=== PATIENT | female | born 2005 | race Caucasian/White ===

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

== ENCOUNTER 2023-04-10 14:30 | Emergency (ER) | payer SELFPAY | END 2023-04-10 16:48 | disposition home or self-care (01) | LOC: CSHERS 14:30 | DX: J01.90 Acute sinusitis, unspecified (principal) | CPT/HCPCS: 71045; 93005 ==

== ENCOUNTER 2023-05-06 09:15 | Emergency (ER) | payer SELFPAY ==
[2023-05-06 10:43] LABS: Bilirubin Neg (Negative); Blood, Urine 150 (Negative); Clarity Slightly Cloudy (Clear); Glucose, Urine (Dipstick) Normal (Negative); Ketone, Urine Negative (Negative); Leukocyte Negative (Negative); Nitrite Negative (Negative); Protein, Urine (Dipstick) Negative (Neg-Trace); Specific Gravity, Urine 1.005 (1.005-1.030); Urobilinogen Normal mg/dL (Less than 2)
[2023-05-06 10:51] LABS: Bacteria/HPF Rare-Few HPF (None Seen); CAUTI Indications for Culture Pregnancy; RBC/HPF 0-3 HPF (0-3); WBC/HPF 0-3 HPF (0-3)
[2023-05-06 10:52] LABS: Urine Culture Reflex Yes Yes
[2023-05-06 20:33] LABS: Chlamydia by PCR, Vaginal Swab Not Detected (NotDetected); GC by PCR, Vaginal Swab Not Detected (NotDetected)
== END 2023-05-06 12:55 | disposition home or self-care (01) ==
LOC: CSHERS 09:15
DX: O20.0 Threatened abortion (principal); Z3A.01 Less than 8 weeks gestation of pregnancy
CPT/HCPCS: 36415; 76856; 81001; 84702; 87077; 87086; 87186; 87480; 87491; 87510; 87591; 87660

== ENCOUNTER 2023-09-04 18:23 | Day surgery (SDC) | payer BC, MEDICAID ==
[2023-09-04 18:59] VITALS: BMI 29.2
== END 2023-09-04 21:05 | disposition home or self-care (01) ==
LOC: CSHLD/OP 18:23
PROVIDERS: ATTEND Family Medicine
DX: O99.891 Other specified diseases and conditions complicating pregnancy (principal); R10.9 Unspecified abdominal pain; Z79.899 Other long term (current) drug therapy; Z3A.28 28 weeks gestation of pregnancy

== ENCOUNTER 2023-10-06 15:38 | Outpatient (CLI) | payer OTHER | END 2023-10-06 15:39 | disposition home or self-care (01) | LOC: CSHULT 15:38 | PROVIDERS: ATTEND Family Medicine | DX: Z34.03 Encounter for supervision of normal first pregnancy, third trimester (principal); Z3A.30 30 weeks gestation of pregnancy | CPT/HCPCS: 76805 ==

== ENCOUNTER 2023-11-30 01:44 | Emergency (ER) | payer BC, MEDICAID, OTHER ==
[2023-11-30 02:41] LABS: #Eosinphils 0.1 10x3/uL (0.0-0.5); #Monocytes 0.5 10x3/uL (0.0-1.1); #Neutrophils 4.3 10x3/uL (1.5-8.4); %Basophils 0.5 % (0.0-2.0); %Eosinophils 1.5 % (0.0-6.0); %Lymphocytes 25.1 % (18.0-47.0); %Monocytes 7.8 % (0.0-10.0); %Neutrophils 64.5 % (40.0-75.0); Hematocrit 34.9 % (34.9-44.5); Hemoglobin 12.1 g/dL (12.0-15.5); Mean Corpuscular HGB CONC 34.7 g/dL (32.0-36.0); Mean Corpuscular Hemoglobin 29.3 pg (27.0-33.0); Mean Corpuscular Volume 84.5 fl (81.6-98.3); Mean Platelet Volume 10.3 fl (7.4-10.4); Platelet Count 215 10x3/uL (150-450); RBC Distribution Width 13.3 % (11.5-14.5); Red Blood Cell (RBC) Count 4.13 10x6/uL (3.90-5.03); White Blood Cell (WBC) Count 6.7 10x3/uL (3.5-10.5)
[2023-11-30 02:46] LABS: Albumin 3.2 g/dL (3.5-5.0); Alkaline Phosphatase 283 U/L (40-100); Anion Gap 14 mmol/L (10-20); BUN (Urea Nitrogen) 5 mg/dL (7.0-18.7); Bilirubin, Total 0.6 mg/dL (0.2-1.2); Calc. Creatinine Clearance 0 mL/min (70-130); Calcium 9.2 mg/dL (7.8-10.44); Carbon Dioxide 21 mmol/L (22-29); Chloride 107 mmol/L (98-107); Estimated GFR 132; Globulin 3.5 g/dL (2.4-3.5); Glucose 97 mg/dL (70-105); Potassium 3.6 mmol/L (3.5-5.1); Protein, Total 6.7 g/dL (6.0-8.3); Sodium 138 mmol/L (136-145)
[2023-11-30 02:47] LABS: ALT (SGPT) 122 U/L (8-55); AST (SGOT) 107 U/L (5-34)
== END 2023-11-30 03:05 | disposition home or self-care (01) ==
LOC: CSHERS 01:44
DX: O26.86 Pruritic urticarial papules and plaques of pregnancy (PUPPP) (principal); O26.613 Liver and biliary tract disorders in pregnancy, third trimester; Z3A.36 36 weeks gestation of pregnancy
CPT/HCPCS: 80053; 82239; 85025

== ENCOUNTER 2023-11-30 03:03 | Day surgery (SDC) | payer BC, MEDICAID ==
[2023-11-30] MEDS ORDERED: hydrALAZINE 20 MG/ML VIAL SLOW IVP PRN (03:32)
[2023-11-30 03:43] VITALS: BMI 34.3
[2023-11-30 03:55] LABS: Creatinine, Urine 47.06 mg/dL (47-110)
== END 2023-11-30 09:35 | disposition home or self-care (01) ==
LOC: CSHLD/OP 03:03
PROVIDERS: ATTEND Family Medicine
DX: O36.8130 Decreased fetal movements, third trimester, not applicable or unspecified (principal); O47.03 False labor before 37 completed weeks of gestation, third trimester; O26.643 Intrahepatic cholestasis of pregnancy, third trimester; K83.1 Obstruction of bile duct; Z79.899 Other long term (current) drug therapy; Z3A.36 36 weeks gestation of pregnancy
CPT/HCPCS: 76819; 80053; 82239; 82570; 84156; 85025; 99282; 99284

== ENCOUNTER 2023-12-06 18:00 | Inpatient (IN) | payer OTHER ==
[~2023-12-06 18:00] MED LIST: Bupivacaine 0.25% HCL 30 ML VIAL ONE; Bupivacaine PF 0.5% 30 ML VIAL ONE
[2023-12-06 20:46] VITALS: BMI 34.1
[2023-12-06] MEDS ORDERED: fentaNYL 50 mcg/mL 1 mL Vial SLOW IVP PRN (20:46)
[2023-12-06] MEDS ORDERED: Promethazine HCl 25 MG/ML VIAL IM PRN (20:46)
[2023-12-06] MEDS ORDERED: Lidocaine 1% (PF) 30 ML VIAL SC PRN (20:46)
[2023-12-06] MEDS ORDERED: Methylergonovine 0.2 MG/ML VIAL IM PRN (20:46)
[2023-12-06] MEDS ORDERED: Carboprost 250 MCG/ML AMP IM PRN (20:46)
[2023-12-06] MEDS ORDERED: Oxytocin 30 units/NS 500 ML 500 ML IV SCH ×2 (20:46)
[2023-12-06] MEDS ORDERED: Ondansetron PF 4 MG/2 ML Vial IVP PRN (20:46)
[2023-12-06] MEDS ORDERED: hydrALAZINE 20 MG/ML VIAL SLOW IVP PRN (20:46)
[2023-12-06] MEDS ORDERED: Diphenoxylate HCl/Atropine Tablet PO PRN (20:46)
[2023-12-06] MEDS ORDERED: HYDROcodone/Acetaminophen 5/325 mg Tablet PO PRN (20:46)
[2023-12-06] MEDS ORDERED: Misoprostol 200 MCG TAB PR PRN (20:46)
[2023-12-06] MEDS ORDERED: Ibuprofen 800 MG TAB PO PRN (20:46)
[2023-12-06] MEDS ORDERED: Tranexamic Acid 1,000 MG/10 ML VIAL IVP PRN (20:46)
[2023-12-06] MEDS: Misoprostol 100 MCG TAB PO SCH (21:32)
[2023-12-06 22:18] LABS: Hematocrit 36.3 % (34.9-44.5); Hemoglobin 12.6 g/dL (12.0-15.5); Mean Corpuscular HGB CONC 34.7 g/dL (32.0-36.0); Mean Corpuscular Hemoglobin 29.5 pg (27.0-33.0); Platelet Count 221 10x3/uL (150-450); RBC Distribution Width 13.6 % (11.5-14.5); Red Blood Cell (RBC) Count 4.27 10x6/uL (3.90-5.03); White Blood Cell (WBC) Count 8.4 10x3/uL (3.5-10.5)
[2023-12-06 22:50] LABS: HBSAg Index 0.21 S/CO (0-0.99); Hep B Surf Ag - L&D Non-Reactive S/CO (NonReactive)
[2023-12-06 22:51] LABS: Syphilis Antibody Nonreactive (Nonreactive); Syphilis Antibody Index 0.05 S/CO (<1.00 Non-Reactive)
[2023-12-07] MEDS ORDERED: Acetaminophen 325 MG TAB PO PRN (10:30)
[2023-12-07] MEDS ORDERED: Moisturizing Cream (Eucerin) 113 GM JAR TOP PRN (10:30)
[2023-12-07] MEDS ORDERED: ePHEDrine Sulfate 50 MG/10 ML VIAL SLOW IVP PRN (10:30)
[2023-12-07] MEDS ORDERED: Communication Order-Pharmacy FS SCH (10:30)
[2023-12-07] MEDS ORDERED: diphenhydrAMINE 50 MG/ML VIAL IVP PRN (10:30)
[2023-12-07] MEDS ORDERED: Promethazine HCl 25 MG/ML VIAL IM PRN (10:30)
[2023-12-07] MEDS ORDERED: Ondansetron PF 4 MG/2 ML Vial IVP PRN (10:30)
[2023-12-07] MEDS ORDERED: Lactated Ringer's 500 ML IV PRN (10:30)
[2023-12-07] MEDS ORDERED: Naloxone HCl 0.4 mg/ml Vial IVP PRN ×2 (10:30)
[2023-12-07] MEDS: fentaNYL/Ropivacaine Epidural 100 ML ONE (10:36)
[2023-12-07] MEDS: Oxytocin 30 units/NS 500 ML 500 ML IV SCH (11:43)
[2023-12-07] MEDS: fentaNYL 2 mcg/Ropivacaine 0.2% Epidural 100 ML CADD EPIDURAL SCH (20:42)
[2023-12-07] MEDS: Lactated Ringer's 1,000 ML IV SCH (20:43)
[2023-12-07] MEDS: Acetaminophen 500 MG TAB PO PRN (23:59)
[2023-12-07] MEDS: Ampicillin 2 GM in Sodium Chloride 0.9% 100 ML IVPB SCH (23:59)
[2023-12-08] MEDS: Lidocaine 1% (PF) 30 ML VIAL ONE (01:46)
[2023-12-08] MEDS ORDERED: Milk Of Magnesia 30 ML UDCUP PO PRN (04:25)
[2023-12-08] MEDS ORDERED: Boostrix 0.5 ML (Tdap) VIAL (>/=7 yrs of age) IM ONE (04:25)
[2023-12-08] MEDS ORDERED: Bisacodyl 10 MG SUPP PR PRN (04:25)
[2023-12-08] MEDS ORDERED: Promethazine HCl 25 MG/ML VIAL IM PRN (04:25)
[2023-12-08] MEDS ORDERED: diphenhydrAMINE 25 MG CAP PO PRN (04:25)
[2023-12-08] MEDS ORDERED: Lanolin Ointment 7 GM TUBE TOP PRN (04:25)
[2023-12-08] MEDS ORDERED: HYDROcodone/Acetaminophen 5/325 mg Tablet PO PRN (04:25)
[2023-12-08] MEDS ORDERED: Ondansetron PF 4 MG/2 ML Vial IVP PRN (04:25)
[2023-12-08] MEDS ORDERED: hydrALAZINE 20 MG/ML VIAL SLOW IVP PRN (04:25)
[2023-12-08] MEDS: Ibuprofen 800 MG TAB PO SCH (06:14)
[2023-12-08] MEDS: Ferrous Sulfate 325 MG TAB PO SCH (07:21)
[2023-12-08] MEDS: Prenatal Vitamin 1 TAB PO SCH (08:30)
[2023-12-08] MEDS: Docusate 100 MG CAP PO SCH (08:30)
[2023-12-09 16:09] VITALS: BP 129/62; TEMP 98.7
== END 2023-12-09 20:28 | disposition home or self-care (01) | DRG 805 ==
LOC: CSHLD 19:30 → CSHPP 12-08 04:15
PROVIDERS: ADMIT Family Medicine; ATTEND Family Medicine
PROC: 10E0XZZ Delivery of Products of Conception, External Approach (ICD-10-PCS; principal; 2023-12-08)
PROC: 0KQM0ZZ Repair Perineum Muscle, Open Approach (ICD-10-PCS; 2023-12-08)
PROC: 0UQMXZZ Repair Vulva, External Approach (ICD-10-PCS; 2023-12-08)
PROC: 10907ZC Drainage of Amniotic Fluid, Therapeutic from Products of Conception, Via Natural or Artificial Opening (ICD-10-PCS; 2023-12-08)
PROC: 3E0P7VZ Introduction of Hormone into Female Reproductive, Via Natural or Artificial Opening (ICD-10-PCS; 2023-12-08)
PROC: 10H07YZ Insertion of Other Device into Products of Conception, Via Natural or Artificial Opening (ICD-10-PCS; 2023-12-08)
DX: O26.643 Intrahepatic cholestasis of pregnancy, third trimester (principal); K83.1 Obstruction of bile duct; Z37.0 Single live birth; Z3A.37 37 weeks gestation of pregnancy; Z79.82 Long term (current) use of aspirin; Z79.899 Other long term (current) drug therapy; O70.1 Second degree perineal laceration during delivery
CPT/HCPCS: 51702; 85027; 86780; 86850; 86900; 86901; 87340; J0290; J0665; J1580; J2001; J2590; J3490; J7120